=== PATIENT | male | born 1965 | race Caucasian/White ===

== ENCOUNTER 2020-02-10 07:16 | Emergency (ER) | payer OTHER, MEDICAID, SELFPAY ==
[2020-02-10 07:15] VITALS: BP 159/94; PULSE 80; RESP 16; TEMP 36.6; O2SAT 98; BMI 27.3
[2020-02-10] MEDS: DEXTROSE 50 % IN WATER 25 GM/50 ML SYRINGE IV (07:39)
--- NOTE | 2020-02-10 07:39 | ED_ITS ---
HPI - General Adult General Chief complaint: Syncope Stated complaint: Near syncope Time Seen by Provider: 02/10/20 07:17 Source: patient and EMS Mode of arrival: EMS Limitations: no limitations History of Present Illness HPI narrative: 54-year-old male who is homeless. Admits to drinking alcohol. States that he has not had any food for the past several days. Has been sleeping outside. Has been in the local area for the past month. States that he walked here from [place]. Has no family in the area. No primary provider. Does have a cell phone. Called EMS this morning because he states that he was not feeling well. Had a very difficult time describing his symptoms more than that. States that his last drink was just a couple hours ago. States that he has been drinking alcohol and Listerine and rubbing alcohol. When EMS arrived patient was alert. Their initial evaluation is that he had normal vital signs. They checked his blood sugar no was in the 40s. They gave him oral glucose. Patient states that he felt somewhat better after that. Upon my evaluation patient states he just was not feeling well. States that he has had seizures in the past secondary to alcohol withdrawal Related Data Allergies Allergy/AdvReac Type Severity Reaction Status Date / Time No Known Drug Allergies Allergy Verified 02/10/20 08:04 Review of Systems Constitutional Constitutional: Reports chills, Denies fever(s), Denies headache(s), Reports lethargy, Reports malaise and Reports weakness Eyes Eyes: Denies change in vision ENT Ears, Nose, Mouth, and Throat: Denies vertigo, Denies headache(s), Reports disequilibrium and Denies sore throat Cardiovascular Cardiovascular: Denies chest pain, Denies edema, Denies irregular heart rhythm, Denies palpitations and Denies dyspnea Respiratory Respiratory: Denies cough and Denies dyspnea Gastrointestinal Gastrointestinal: Denies abdominal pain, Denies nausea and Denies vomiting Genitourinary Genitourinary: Denies dysuria Musculoskeletal Musculoskeletal: Denies myalgias and Denies arthralgias Integumentary/Breasts Skin/Breast: Denies lesions and Denies rash Neurologic Neurologic: Denies abnormal movements, Denies abnormal speech, Denies vertigo, Denies headache(s), Denies memory loss, Reports disequilibrium and Reports weakness Psychiatric Psychiatric: Denies anxiety, Denies memory loss, Denies homicidal ideation and Denies suicidal ideation Endocrine Endocrine: Denies palpitations Hematologic/Lymphatic Hematologic/Lymphatic: Denies easy bleeding and Denies easy bruising Allergic/Immunologic Allergic/Immunologic: Denies urticaria Patient History Medical History Hypertension (Acute) Social History Smoking Status: Never smoker Smoking Status: Never smoker alcohol intake frequency: 3 or more drinks per day Alcohol type: other Exam Initial Vital Signs Initial Vital Signs: Vital Signs Temperature 97.8 F 02/10/20 07:15 Pulse Rate 80 02/10/20 07:15 Respiratory Rate 16 02/10/20 07:15 Blood Pressure 159/94 H 02/10/20 07:15 Pulse Oximetry 98 02/10/20 07:15 Const General: cooperative, well developed and disheveled Other: Patient is alert and oriented x3 however is somewhat slow to answer questions. HENMT Head: normal to inspection, normocephalic and atraumatic Eyes Pupils: PERRL Resp Effort & Inspection: normal respiratory effort Auscultation: clear to auscultation bilaterally Cardio Rate: regular rate Rhythm: regular rhythm GI Inspection: non-distended Palpation: soft, No firm and No tender Skin Other: Skin is cool. No signs of frostbite Neuro General: alert, awake, oriented x3 and moves all extremities Extrem General: capillary refill normal and No edema Psych Appearance: grossly normal and well kempt Scores GCS [place] coma scale eye opening: Spontaneous Hector coma scale verbal response: Orientated [place] coma scale motor response: Obey commands [place] coma scale total score: 15 Course Orders Ordered: ED Orders 02/10/20 11:30 Ethanol (ETOH) Stat 02/10/20 13:10 Urine Drug Screen, Rapid Stat Urine Microscopic Stat Discontinued Medications Chlordiazepoxide HCl (Librium) 25 mg PO NOW ONE Stop: 02/10/20 14:56 Last Admin: 02/10/20 15:11 Dose: 25 mg Documented by: LESLIE Dextrose ([email or web address]) 25 gm IV NOW ONE Stop: 02/10/20 07:31 Last Admin: 02/10/20 07:39 Dose: 25 gm Documented by: LESLIE Magnesium Sulfate 2 gm/ Folic Acid 1 mg/ Thiamine HCl 100 mg / Multivitamins 10 ml/ Sodium Chloride 1,015.2 mls @ 125 mls/hr IV NOW ONE Stop: 02/10/20 15:37 Last Infusion: 02/10/20 15:10 Dose: 125 mls/hr Documented by: Admin: 02/10/20 08:02 Dose: 125 mls/hr Documented by: TUTU Ondansetron HCl (Zofran) 4 mg IV NOW ONE Stop: 02/10/20 07:57 Last Admin: 02/10/20 08:10 Dose: 4 mg Documented by: LESLIE Pantoprazole Sodium (Protonix) 40 mg IV NOW ONE Stop: 02/10/20 07:37 Last Admin: 02/10/20 07:41 Dose: 40 mg Documented by: LESLIE Vital Signs Vital signs: Vital Signs - 8 hr 02/10/20 14:43 02/10/20 15:52 Temperature 99 F Pulse Rate 85 91 H Respiratory Rate 16 16 Blood Pressure [Right Arm] 140/80 159/80 H Medical Decision Making Lab Data Lab results reviewed: Yes I reviewed the patient's lab results. Result diagrams: 02/10/20 07:36 02/10/20 07:36 Labs: Lab Results 02/10/20 02/10/20 02/10/20 Range/Units 07:36 07:36 07:36 WBC 9.1 (4.5-11.0) X10^3/uL RBC 5.54 (4.5-5.9) X10^6/uL Hgb 17.4 (13.5-17.5) g/dL Hct 51.0 (41-53) % MCV 92.0 (80-100) fL MCH 31.3 (26-34) PG MCHC 34.1 (30-36) % RDW 14.2 (11.6-14.8) % Plt Count 280 (150-400) X10^3/uL Neut % (Auto) 75.3 H (50-75) % Lymph % (Auto) 15.9 L (25-40) % [place] % (Auto) 7.8 (3-14) % Eos % (Auto) 0.0 L (2-4) % Baso % (Auto) 1.0 (0-2) % Neut # (Auto) 6800 (7659-8546) /uL Lymph # (Auto) 1400 (6536-4223) /uL [place] # (Auto) 700 (0-900) /uL Eos # (Auto) 0 (0-450) /uL Baso # (Auto) 100 (0-100) /uL VBG pH (7.33-7.43) VBG pCO2 (45-50) mmHg VBG pO2 (35-45) mmHg VBG HCO3 (23-28) mmol/L VBG Total CO2 (24-29) mmol/L VBG O2 Saturation (70-75) % VBG Base Excess (0-4) mmol/L Sodium (137-145) mmol/L Potassium (3.4-5.1) mmol/L Chloride (98-107) mmol/L Carbon Dioxide (22-32) mmol/L BUN (9-20) mg/dL Creatinine (0.66-1.25) mg/dL Estimated GFR (>60) mL/min BUN/Creatinine Ratio (6-22) Glucose (70-100) mg/dL Lactate (0.7-2.1) mmol/L Calcium (8.4-10.2) mg/dL Phosphorus 3.7 (2.5-4.5) mg/dL Magnesium (1.6-2.3) mg/dL Total Bilirubin (0.2-1.3) mg/dL Conjugated Bilirubin (0.0-0.3) md/dL Unconjugated Bilirubin (0.0-1.1) mg/dL AST (17-59) IU/L ALT (<50) IU/L Alkaline Phosphatase (38-126) U/L Ammonia < 9 L (9-30) umol/L Total Protein (6.3-8.2) g/dL Albumin (3.5-5.0) g/dL Globulin (1.7-4.1) g/dL Albumin/Globulin Ratio (1.0-2.8) Lipase (23-300) U/L Urine RBC (0-5/HPF) Urine WBC (0-5/HPF) Urine Bacteria (None) Ur Culture Indicated? Salicylates 2.1 (<20) mg/dL U Opiates 300ng/mL cut (Negative) Ur Oxycodone Screen (Negative) Urine Methadone Screen (Negative) Acetaminophen < 10 L (10-30) ug/mL Ur Barbiturates Screen (Negative) U Tricyclic Antidepress (Negative) Ur Phencyclidine Scrn (Negative) Ur Amphetamines Screen (Negative) U Methamphetamines Scrn (Negative) Ur MDMA Scrn (Ecstasy) (Negative) U Benzodiazepines Scrn (Negative) Urine Cocaine Screen (Negative) U Marijuana (THC) Screen (Negative) Ethyl Alcohol 230 H ( - 10) mg/dL Ketones (<0.27) mmol/L 02/10/20 02/10/20 02/10/20 Range/Units 07:36 07:45 07:55 WBC (4.5-11.0) X10^3/uL RBC (4.5-5.9) X10^6/uL Hgb (13.5-17.5) g/dL Hct (41-53) % MCV (80-100) fL MCH (26-34) PG MCHC (30-36) % RDW (11.6-14.8) % Plt Count (150-400) X10^3/uL Neut % (Auto) (50-75) % Lymph % (Auto) (25-40) % [place] % (Auto) (3-14) % Eos % (Auto) (2-4) % Baso % (Auto) (0-2) % Neut # (Auto) (2448-2061) /uL Lymph # (Auto) (0691-1203) /uL [place] # (Auto) (0-900) /uL Eos # (Auto) (0-450) /uL Baso # (Auto) (0-100) /uL VBG pH 7.33 (7.33-7.43) VBG pCO2 48.1 (45-50) mmHg VBG pO2 20 L (35-45) mmHg VBG HCO3 25 (23-28) mmol/L VBG Total CO2 27 (24-29) mmol/L VBG O2 Saturation 29 L (70-75) % VBG Base Excess -1.0 L (0-4) mmol/L Sodium 139 (137-145) mmol/L Potassium 3.8 (3.4-5.1) mmol/L Chloride 100 (98-107) mmol/L Carbon Dioxide 19 L (22-32) mmol/L BUN 24 H (9-20) mg/dL Creatinine 0.75 (0.66-1.25) mg/dL Estimated GFR > 60.0 (>60) mL/min BUN/Creatinine Ratio 32.0 H (6-22) Glucose 59 L (70-100) mg/dL Lactate 2.7 H (0.7-2.1) mmol/L Calcium 9.6 (8.4-10.2) mg/dL Phosphorus Cancelled (2.5-4.5) mg/dL Magnesium 1.9 (1.6-2.3) mg/dL Total Bilirubin 0.5 (0.2-1.3) mg/dL Conjugated Bilirubin 0.0 (0.0-0.3) md/dL Unconjugated Bilirubin 0.3 (0.0-1.1) mg/dL AST 115 H (17-59) IU/L ALT 79 H (<50) IU/L Alkaline Phosphatase 106 (38-126) U/L Ammonia (9-30) umol/L Total Protein 8.5 H (6.3-8.2) g/dL Albumin 5.0 (3.5-5.0) g/dL Globulin 3.5 (1.7-4.1) g/dL Albumin/Globulin Ratio 1.4 (1.0-2.8) Lipase 217 (23-300) U/L Urine RBC (0-5/HPF) Urine WBC (0-5/HPF) Urine Bacteria (None) Ur Culture Indicated? Salicylates Cancelled (<20) mg/dL U Opiates 300ng/mL cut (Negative) Ur Oxycodone Screen (Negative) Urine Methadone Screen (Negative) Acetaminophen (10-30) ug/mL Ur Barbiturates Screen (Negative) U Tricyclic Antidepress (Negative) Ur Phencyclidine Scrn (Negative) Ur Amphetamines Screen (Negative) U Methamphetamines Scrn (Negative) Ur MDMA Scrn (Ecstasy) (Negative) U Benzodiazepines Scrn (Negative) Urine Cocaine Screen (Negative) U Marijuana (THC) Screen (Negative) Ethyl Alcohol ( - 10) mg/dL Ketones 3.76 H (<0.27) mmol/L 02/10/20 02/10/20 02/10/20 Range/Units 11:30 11:30 13:10 WBC (4.5-11.0) X10^3/uL RBC (4.5-5.9) X10^6/uL Hgb (13.5-17.5) g/dL Hct (41-53) % MCV (80-100) fL MCH (26-34) PG MCHC (30-36) % RDW (11.6-14.8) % Plt Count (150-400) X10^3/uL Neut % (Auto) (50-75) % Lymph % (Auto) (25-40) % [place] % (Auto) (3-14) % Eos % (Auto) (2-4) % Baso % (Auto) (0-2) % Neut # (Auto) (5218-5461) /uL Lymph # (Auto) (3852-4484) /uL [place] # (Auto) (0-900) /uL Eos # (Auto) (0-450) /uL Baso # (Auto) (0-100) /uL VBG pH (7.33-7.43) VBG pCO2 (45-50) mmHg VBG pO2 (35-45) mmHg VBG HCO3 (23-28) mmol/L VBG Total CO2 (24-29) mmol/L VBG O2 Saturation (70-75) % VBG Base Excess (0-4) mmol/L Sodium (137-145) mmol/L Potassium (3.4-5.1) mmol/L Chloride (98-107) mmol/L Carbon Dioxide (22-32) mmol/L BUN (9-20) mg/dL Creatinine (0.66-1.25) mg/dL Estimated GFR (>60) mL/min BUN/Creatinine Ratio (6-22) Glucose (70-100) mg/dL Lactate 2.5 H (0.7-2.1) mmol/L Calcium (8.4-10.2) mg/dL Phosphorus (2.5-4.5) mg/dL Magnesium (1.6-2.3) mg/dL Total Bilirubin (0.2-1.3) mg/dL Conjugated Bilirubin (0.0-0.3) md/dL Unconjugated Bilirubin (0.0-1.1) mg/dL AST (17-59) IU/L ALT (<50) IU/L Alkaline Phosphatase (38-126) U/L Ammonia (9-30) umol/L Total Protein (6.3-8.2) g/dL Albumin (3.5-5.0) g/dL Globulin (1.7-4.1) g/dL Albumin/Globulin Ratio (1.0-2.8) Lipase (23-300) U/L Urine RBC 0-1/hpf (0-5/HPF) Urine WBC None seen (0-5/HPF) Urine Bacteria None seen (None) Ur Culture Indicated? Cult not indicated Salicylates (<20) mg/dL U Opiates 300ng/mL cut (Negative) Ur Oxycodone Screen (Negative) Urine Methadone Screen (Negative) Acetaminophen (10-30) ug/mL Ur Barbiturates Screen (Negative) U Tricyclic Antidepress (Negative) Ur Phencyclidine Scrn (Negative) Ur Amphetamines Screen (Negative) U Methamphetamines Scrn (Negative) Ur MDMA Scrn (Ecstasy) (Negative) U Benzodiazepines Scrn (Negative) Urine Cocaine Screen (Negative) U Marijuana (THC) Screen (Negative) Ethyl Alcohol 135 H ( - 10) mg/dL Ketones (<0.27) mmol/L 02/10/20 Range/Units 13:10 WBC (4.5-11.0) X10^3/uL RBC (4.5-5.9) X10^6/uL Hgb (13.5-17.5) g/dL Hct (41-53) % MCV (80-100) fL MCH (26-34) PG MCHC (30-36) % RDW (11.6-14.8) % Plt Count (150-400) X10^3/uL Neut % (Auto) (50-75) % Lymph % (Auto) (25-40) % [place] % (Auto) (3-14) % Eos % (Auto) (2-4) % Baso % (Auto) (0-2) % Neut # (Auto) (3362-1533) /uL Lymph # (Auto) (8674-1247) /uL [place] # (Auto) (0-900) /uL Eos # (Auto) (0-450) /uL Baso # (Auto) (0-100) /uL VBG pH (7.33-7.43) VBG pCO2 (45-50) mmHg VBG pO2 (35-45) mmHg VBG HCO3 (23-28) mmol/L VBG Total CO2 (24-29) mmol/L VBG O2 Saturation (70-75) % VBG Base Excess (0-4) mmol/L Sodium (137-145) mmol/L Potassium (3.4-5.1) mmol/L Chloride (98-107) mmol/L Carbon Dioxide (22-32) mmol/L BUN (9-20) mg/dL Creatinine (0.66-1.25) mg/dL Estimated GFR (>60) mL/min BUN/Creatinine Ratio (6-22) Glucose (70-100) mg/dL Lactate (0.7-2.1) mmol/L Calcium (8.4-10.2) mg/dL Phosphorus (2.5-4.5) mg/dL Magnesium (1.6-2.3) mg/dL Total Bilirubin (0.2-1.3) mg/dL Conjugated Bilirubin (0.0-0.3) md/dL Unconjugated Bilirubin (0.0-1.1) mg/dL AST (17-59) IU/L ALT (<50) IU/L Alkaline Phosphatase (38-126) U/L Ammonia (9-30) umol/L Total Protein (6.3-8.2) g/dL Albumin (3.5-5.0) g/dL Globulin (1.7-4.1) g/dL Albumin/Globulin Ratio (1.0-2.8) Lipase (23-300) U/L Urine RBC (0-5/HPF) Urine WBC (0-5/HPF) Urine Bacteria (None) Ur Culture Indicated? Salicylates (<20) mg/dL U Opiates 300ng/mL cut Negative (Negative) Ur Oxycodone Screen Negative (Negative) Urine Methadone Screen Negative (Negative) Acetaminophen (10-30) ug/mL Ur Barbiturates Screen Negative (Negative) U Tricyclic Antidepress Negative (Negative) Ur Phencyclidine Scrn Negative (Negative) Ur Amphetamines Screen Negative (Negative) U Methamphetamines Scrn Negative (Negative) Ur MDMA Scrn (Ecstasy) Negative (Negative) U Benzodiazepines Scrn Negative (Negative) Urine Cocaine Screen Negative (Negative) U Marijuana (THC) Screen Negative (Negative) Ethyl Alcohol ( - 10) mg/dL Ketones (<0.27) mmol/L Point of Care Testing Glucose POC 114 Point of care testing: Point of Care Testing Glucose POC 114 ECG Data Attestation: I personally reviewed and interpreted this ECG as follows: Prior ECG tracings: not available for review Interpretation: Sinus rhythm Ventricular rate is 76 Normal axis Normal QRS QTC [address] T wave changes MDM Narrative Medical decision making narrative: Patient alcohol level elevated upon arrival and not surprisingly this did improve with time. Rest of his toxic logic workup negative for acute ingestions. He did admit to drinking isopropyl alcohol and Listerine. He is not having any GI symptoms. I did discuss the case with poison Control who had no further recommendations further than what his workup here in the emergency department has been. Patient has been calm. He is alert oriented x3. During his stay did exhibit some withdrawal symptoms. He was given Librium for this. His hypoglycemia improves. Was tolerating oral intake. Was seen by social work. Patient is accepted to have a green treatment facility. He is agreeable to go. He is stable for transport. Social work did confirm with them that they are willing to provide any medications for him. Patient will be transported. Discharge Plan Departure Patient Disposition: Home Clinical Impression: Hypoglycemia Alcohol intoxication Qualifiers: Complication of substance-induced condition: with unspecified complication Qualified Code(s): F10.929 - Alcohol use, unspecified with intoxication, unspecified Instructions: DI for Alcohol Abuse Activity Restrictions/Additional Instructions: You are being discharged to be transported to [facility]. Highly recommend that you follow through with this. No driving for the next 24 hours or in the future if you partake in alcohol. Return to emergency department for any new or worsening symptoms
[2020-02-10] MEDS: PANTOPRAZOLE 40 MG VIAL IV (07:41)
[2020-02-10 07:42] VITALS: BMI 27.3
[2020-02-10 07:47] LABS: Add Manual Diff / Slide Review NO; Basophils Absolute Auto 100 /uL (0-100); Eosinophils Absolute Auto 0 /uL (0-450); Hemoglobin 17.4 g/dL (13.5-17.5); Lymphocytes Absolute Auto 1400 /uL (1100-4500); Lymphocytes Percent Auto 15.9 % (25-40); Mean Corpuscular HGB Conc 34.1 % (30-36); Mean Corpuscular Hemoglobin 31.3 PG (26-34); Monocytes Absolute Auto 700 /uL (0-900); Monocytes Percent Auto 7.8 % (3-14); Neutrophils Absolute Auto 6800 /uL (1500-7000); Neutrophils Percent Auto 75.3 % (50-75); Platelet Count 280 X10^3/uL (150-400); Red Blood Cell Count 5.54 X10^6/uL (4.5-5.9); Red Cell Distribution Width 14.2 % (11.6-14.8); White Blood Cell Count 9.1 X10^3/uL (4.5-11.0)
[2020-02-10] MEDS: MAGNESIUM SULFATE 2 GM, FOLIC ACID 1 MG, THIAMINE 100 MG, MULTIVITAMIN 10 ML in SODIUM ... IV (08:02)
[2020-02-10 08:06] VITALS: BP 159/83; PULSE 81; RESP 16
--- NOTE | 2020-02-10 08:06 | PC.NURSE ---
Patient's blood sugar up to 235 after administration of D50; patient more alert now than on first arrival. Seizure pads placed to rails due to previous hx of alcohol-withdrawal seizures. Patient appears to have no injuries and denies falling, but states that sometimes he can't remember events because he blacks out. Warm blankets provided, patient on solar business developer. Call light in place.
[2020-02-10 08:09] LABS: Acetaminophen < 10 ug/mL (10-30); Ammonia (NH3) < 9 umol/L (9-30); Ethanol (ETOH) 230 mg/dL; Phosphorous 3.7 mg/dL (2.5-4.5); Salicylate 2.1 mg/dL (<20)
[2020-02-10] MEDS: ONDANSETRON 4 MG/2 ML INJ IV (08:10)
[2020-02-10 08:12] LABS: Alanine Aminotransferase 79 IU/L (<50); Albumin Globulin Ratio 1.4 (1.0-2.8); Alkaline Phosphatase 106 U/L (38-126); Aspartate Aminotransferase 115 IU/L (17-59); Bilirubin Total 0.5 mg/dL (0.2-1.3); Bilirubin Unconjugated 0.3 mg/dL (0.0-1.1); Blood Urea Nitrogen 24 mg/dL (9-20); Calcium 9.6 mg/dL (8.4-10.2); Carbon Dioxide 19 mmol/L (22-32); Chloride 100 mmol/L (98-107); Estimated Glomerular Filt Rate > 60.0 mL/min (>60); Globulin 3.5 g/dL (1.7-4.1); Glucose 59 mg/dL (70-100); Lipase 217 U/L (23-300); Magnesium 1.9 mg/dL (1.6-2.3); Potassium 3.8 mmol/L (3.4-5.1); Sodium 139 mmol/L (137-145); Total Protein 8.5 g/dL (6.3-8.2)
[2020-02-10 08:16] LABS: HCO3 VBG 25 mmol/L (23-28); Oxygen Saturation VBG 29 % (70-75); PCO2 VBG 48.1 mmHg (45-50); PO2 VBG 20 mmHg (35-45); Total CO2 VBG 27 mmol/L (24-29); pH VBG 7.33 (7.33-7.43)
[2020-02-10 08:21] LABS: Lactate (Lactic Acid) 2.7 mmol/L (0.7-2.1)
[2020-02-10 08:30] LABS: HEMOLYSIS 26 (0-50); Ketones (Beta-Hydroxybutyrate) 3.76 mmol/L (<0.27)
--- NOTE | 2020-02-10 08:35 | PC.NURSE ---
Patient resting in stretcher with eyes closed but arousable to verbal stimuli. Patient states that he doesn't feel any better. No emesis. Patient states, I'm going into withdrawal. No clinical signs of withdrawal at this time. VSS. Suction working and set up at bedside. Notified Dr Zambrano.
--- NOTE | 2020-02-10 09:00 | PC.NURSE ---
Recheck of blood sugar 168. Crackers and cheese, apple juice provided.
[2020-02-10 09:44] VITALS: BP 131/77; PULSE 81; RESP 12; TEMP 36.8; O2SAT 93
--- NOTE | 2020-02-10 09:59 | PC.NURSE ---
Recheck of blood sugar 122. Notified Dr Zambrano. Patient offered food but denies being hungry at this time.
[2020-02-10 10:02] LABS: Reflexed Lactate in 2 Hours Y
--- NOTE | 2020-02-10 11:41 | PC.NURSE ---
Patient still speaking with public health social worker. Recheck of blood sugar and labs sent. Lunch tray ordered.
[2020-02-10 11:57] LABS: Ethanol (ETOH) 135 mg/dL; Lactate 2HR (Lactic Acid Rflx) 2.5 mmol/L (0.7-2.1)
--- NOTE | 2020-02-10 12:29 | PC.NURSE ---
Bladder scan reveals 454. Notified Dr Zambrano. Patient attempting to use urinal.
--- NOTE | 2020-02-10 13:27 | CM.SWNOTE ---
MASTER CONTROL SUPERVISOR - Emergency Department Legal Instructor Assessment MASTER CONTROL SUPERVISOR - Legal Instructor Assessment Start: 02/10/20 12:13 Freq: Status: Active Protocol: Document 02/10/20 12:13 PAT (Rec: 02/10/20 13:22 PAT [id number]) MASTER CONTROL SUPERVISOR/Legal Instructor Assessment Time Spent with Patient Start date 02/10/20 Visit Start Time 10:45 End date 02/10/20 Visit End Time 12:00 Total time Care Management spent on 75 patient visit-in minutes Substance Abuse Screening Include Onset, Duration, Intensity Presenting Problem Patient presents to ED via EMS stating he is not feeling well. Patient admits to drinking rubbing alcohol and Listerine mouth wash immediately prior to visit to ED. Precipitating Event(s) Patient states that he stated drinking in 2010 after his was diagnosed with brain cancer. Patient states that when his in 2014 he lost everything and has experienced alcoholism since then. Current Behavioral Health Provider(s) Patient does not identify a Include Facility, Provider, Ph. # current PCP or counselor. Patient expresses interest in counseling services. Family Hx of Behavioral Abuse None reported. Rehab Facilities? ((Date(s), Location(s) Patient received intensive ) inpatient treatment at a facility in [place] in 2018, and said he felt that the programming from this facility was helpful to him. Patient has had two short stays in [facility] between Dec 2019 and Jan 2020. History of Withdrawal? Seizures? Patient states that he experiences significant withdrawals including seizures, vomiting, visual and audio hallucinations, shakiness, and hearing the blood pump through [his] veins. Longest Period of Sobriety Patient was sober for 1.5 years while working with program in [place]. Patient states that when program ended , he had not secured housing, and relapsed upon entering homelessness upon graduation from facility. Psychosocial Information Patient is a 54 y/o male who has been experiencing homelessness since shortly after his . Patient states he lost everything following the of his , and had a falling out with family around this time. Patient came to [place] from [place] a few months ago wanting to get help for his alcoholism and to find housing. Patient has been staying outside and in places not meant for habitation. Patient currently has no income, but believes he has been signed up for SNAP. Patient does not currently describe any current support network. Support System(s) None described- estranged from family following of . 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 Legal Concerns Legal Matters - Outstanding Issues none reported Mental Status Orientation (Person/Place/Time) Patient oriented x3 Affect Appropriate for setting. Patient was calm, cooperative throughout assessment. Thought Content - Specify/Describe No active obsessions, Obsessions, Delusions, Hallucinations delusions, or hallucinations observed or reported. Thought Processes (Nskdstj-Uhlloxkn-Vgyp Thought process was logical, Ngpqdszi-Yepmunqv-Kkcqjchspb- coherent, and goal directed. Ancwflkvagrhpa-Kyqglra-Rxsubdiwbjgi- Patient described goals of Thought Blocking) wanting discontinue his alcohol use, secure housing and employment, and wants support to address the underlying depressions that he describes as causing him to drink. Patient has goals and expresses an understanding of the work it will take to achieve stated goals. Speech (Cwoxdf-Ssst-Dekmbgl-Rapid-Soft- Normal Loud-Pressured) Motor (Fgmaoz-Tgktpmlzb-Rgtl-Other) Normal for context Insight (Present-Partially Present- Present Impaired) Judgment (Intact-Impaired) Intact Impulse Control (Adequate-Impaired) Adequate during interview Memory (Oyyzanfsg-Sevlog-Rnmpmw, Intact Impaired-Intact) Concentration (Intact-Impaired) Intact Attention (Intact-Impaired) Intact Behavior (Appropriate-Inappropriate) Appropriate. Patient was calm and cooperative throughout assessment. Patient was open during interview and became tearful during discussions of his late . Additional Comment Patient states he has been drinking 90% rubbing alcohol and Listerine as his primary source of Alcohol intake for some time. Patient states that he drinks the rubbing alcohol 1-2 capfuls at a time, and that roughly one bottle eases [his] pains, but after that, he can barely lift the second bottle to [his] mouth. Risk Assessment Suicidal Ideation (Plan) No Homicidal Ideation (Plan) No Comment Patient was explicit that he was going to take no active action to kill himself. Patient did express that his alcoholism is killing [him] and that him being out in the elements is as well. Intervention Intervention MASTER CONTROL SUPERVISOR requested to consult with patient by Dr. Zambrano. Patient repeatedly expresses a want to discontinue his alcohol intake, to secure housing, and to re-enter the workforce. Patient demonstrates understanding of the consequences of his drinking and how his depression accelerates his drinking. Patient agreeable to enter detox facility and longer-term inpatient treatment for his alcohol use following discharge. Plan RA Plan MASTER CONTROL SUPERVISOR will examine options for detox centers and longer term treatment centers, and work with patient to secure bed. FÁTIMA Garcia
--- NOTE | 2020-02-10 13:29 | CM.SWNOTE ---
MILITARY ADMINISTRATIVE TECHNICIAN Note Following assessment, MILITARY ADMINISTRATIVE TECHNICIAN checks in with Dr. Zambrano and ED staff. Staff in agreement about seeing detox placement for patient following discharge. MILITARY ADMINISTRATIVE TECHNICIAN calls [facility] and [facility] to advocate for patient. No beds avail at [facility]. Spoke with Cat at [facility] ph who has one bed available, and needs to do phone screening with patient for final approval. Bed will be available at 8pm. MILITARY ADMINISTRATIVE TECHNICIAN relays plan to Dr. Zambrano who confirms that this plan will work. MILITARY ADMINISTRATIVE TECHNICIAN informs patient of plan, and patient is in agreement. Patient states he feels good about plan. MILITARY ADMINISTRATIVE TECHNICIAN calls [facility] and transfers call to patients room. Plan: MILITARY ADMINISTRATIVE TECHNICIAN to fax clinicals to [facility] at fax . MILITARY ADMINISTRATIVE TECHNICIAN will complete form to set up medicaid transport [facility] [place] [facility] [place] [address]. FÁTIMA Garcia
[2020-02-10 14:04] LABS: UR Morphine/Opiate cutoff 300 Negative (Negative); Ur Creatinine Normal (Normal); Ur Specific Gravity Normal (Normal); Urine Amphetamines Negative (Negative); Urine Barbiturates Negative (Negative); Urine Benzodiazepines Negative (Negative); Urine Cocaine Negative (Negative); Urine MDMA Negative (Negative); Urine Methadone Negative (Negative); Urine Methamphetamines Negative (Negative); Urine Oxycodone Negative (Negative); Urine Phencyclidine Negative (Negative); Urine Tetrahydrocannabinol Negative (Negative); Urine Tricyclic Antidepressant Negative (Negative); Urine pH Normal (Normal)
--- NOTE | 2020-02-10 14:08 | CM.SWNOTE ---
SOIL EXPERT note Cat from [place] confirmed with SOIL EXPERT that patient had been accepted following phone screen. SOIL EXPERT checked in with patient to confirm plan to go to detox facility via Medicaid transport. Patient indicated understanding. SOIL EXPERT faxed clinicals to [place] and Medicaid Transport request to [facility]. SOIL EXPERT requested patient be picked up at 6pm at ED. SOIL EXPERT received confirmations that both faxes had been successfully sent. FÁTIMA Garcia
[2020-02-10 14:35] LABS: Bacteria Urine None Seen; WBC Urine None Seen (0-5/HPF)
[2020-02-10 14:41] LABS: Culture Indicated Urine Cult Not Indicated; RBC Urine 0-1/HPF (0-5/HPF)
[2020-02-10 14:43] VITALS: BP 140/80; PULSE 85; RESP 16; TEMP 37.2
--- NOTE | 2020-02-10 14:53 | PC.NURSE ---
Asked patient if he wanted to get out of bed to stretch his legs since he had been here for several hours. Patient states no, and that he feels too weak to get up. CIWA scale calculated and notified Dr Zambrano. Sandwiches and juice provided.
[2020-02-10] MEDS: chlordiazePOXIDE 25 MG CAPSULE PO (15:11)
[2020-02-10 15:52] VITALS: BP 159/80; PULSE 91; RESP 16
--- NOTE | 2020-02-10 16:40 | PC.NURSE ---
Pt requested to get out of bed and plug his phone in to watch a movie. I assisted pt with getting into a chair and plugging his phone in. Pt denied any dizziness or lightheadedness. Call light is in reach and pt is in view of nurses station
--- NOTE | 2020-02-10 17:27 | PC.NURSE ---
Patient ambulatory to bathroom without assist. Patient awaiting transfer to detox facility,
[2020-02-10 18:40] VITALS: BP 136/70; PULSE 86; RESP 15; TEMP 37.2; O2SAT 96
[2020-02-11 04:22] LABS: HBsAg Screen Negative (Negative); Hepatitis A Antibody IgM Negative (Negative); Hepatitis B Core Antibody IgM Negative (Negative); Hepatitis C Antibody <0.1 s/co ratio (0.0-0.9)
[2020-02-11 15:10] LABS: Osmolality, Serum 322 mOsmol/kg (275-295)
== END 2020-02-10 18:53 | disposition home or self-care (01) ==
PROVIDERS: Emergency Provider Emergency Medicine
DX: E16.2 Hypoglycemia, unspecified (principal); F10.929 Alcohol use, unspecified with intoxication, unspecified; R53.1 Weakness
CPT/HCPCS: 36415; 51798; 80048; 80074; 80076; 80305; 80320; 80329; 81015; 82009; 82140; 82805; 82962; 83605; 83690; 83735; 83930; 84100; 85025; 93005; 96361; 96374; 96375; 99285; C9113; G0480; J2405; J3475